=== PATIENT | male | born 1950 | race Caucasian/White ===

== ENCOUNTER 2020-11-29 13:39 | Emergency (ER) | payer MEDICARE, MEDICAID, SELFPAY ==
[2020-11-29 13:46] VITALS: BP 141/78; PULSE 70; RESP 18; TEMP 36.6; O2SAT 97; BMI 23.6
--- NOTE | 2020-11-29 13:58 | ED.WOUNDLAC ---
HPI - Wound/Laceration General Chief Complaint: Wound/Laceration Stated Complaint: cut thumb of left hand Time Seen by Provider: 11/29/20 13:49 Source: patient Mode of arrival: Ambulatory Limitations: no limitations History of Present Illness HPI narrative: Patient is a 70-year-old male who is right-hand dominant here for evaluation of a cut to his left thumb. He states he was using a knife to cut some old toe line off of an object when the knife slipped and cut him in the back of the thumb. He does not know when his last tetanus shot was. He states that he did clean it out prior to arrival and covered with a bandage. Related Data Allergies Allergy/AdvReac Type Severity Reaction Status Date / Time No Known Drug Allergies Allergy Verified 11/29/20 13:46 Review of Systems Constitutional Constitutional: Denies fever(s) Musculoskeletal Musculoskeletal: Denies tingling Comments: Left thumb pain Integumentary/Breasts Comments: Cut to the back of the left thumb Neurologic Neurologic: Denies tingling Hematologic/Lymphatic On Anticoagulants: No Allergic/Immunologic Allergic/Immunologic: Denies urticaria Patient History Medical History Healthy adult Social History Smoking Status: Never smoker Smoking Status: Never smoker alcohol intake frequency: holidays/special occasions only Substance Use Type: does not use Exam Initial Vital Signs Initial Vital Signs: Vital Signs Temperature 97.9 F 11/29/20 13:46 Pulse Rate 70 11/29/20 13:46 Respiratory Rate 18 11/29/20 13:46 Blood Pressure 141/78 H 11/29/20 13:46 Pulse Oximetry 97 11/29/20 13:46 Const General: cooperative and comfortable HENMT Head: normal to inspection and normocephalic Cardio Pulses: radial pulses present on the left Skin Other: 2 cm laceration to the dorsum of the left thumb just proximal to the IP joint. Neuro Sensory Exam: no sensory deficits noted Extrem Other: Patient able to flex and extend the right thumb both active and passive. Psych Appearance: grossly normal and well kempt Procedures Laceration Repair Laceration 1: Site: other (Thumb) Side (If applicable): left Size (cm): 2 Description: linear Depth: simple, single layer Local Anesthetic: lidocaine 1% and with bicarb Amount of anesthesia used (mL): 2 Pre-repair: wound explored and deep structures intact Skin layer closed with: nylon Size (cm): 4-0 Number of sutures: 4 Technique: simple, interrupted Course Orders Ordered: Discontinued Medications Bacitracin (Bacitracin Oint 0.9 Gm Pckt) 1 applic TOP NOW ONE Stop: 11/29/20 13:54 Last Admin: 11/29/20 14:09 Dose: 1 applic Documented by: Diphtheria/Tetanus/Acell Pertussis (Tet,Diph,Pertuss(Acell),Vac/Pf 0.5 Ml Syringe) 0.5 ml IM .ONCE ONE Stop: 11/29/20 13:54 Last Admin: 11/29/20 14:10 Dose: 0.5 ml Documented by: Lidocaine/Sodium Bicarbonate (Lido 1%/Sod Bicarb 8.4% (10ml) 10 Ml Syringe) 10 ml INJ NOW ONE Stop: 11/29/20 13:54 Last Admin: 11/29/20 14:09 Dose: 10 ml Documented by: Vital Signs Vital signs: Vital Signs - 8 hr 11/29/20 13:46 Temperature 97.9 F Pulse Rate 70 Respiratory Rate 18 Blood Pressure 141/78 H Pulse Oximetry 97 MDM - Wound/Laceration MDM Narrative Medical decision making narrative: Patient is neurovascularly intact. It appears that the deep structures to include the tendons. Was closed as described above. His tetanus was updated. He was given care instructions and return precautions. He expressed understanding agreement. Discharge Plan Departure Patient Disposition: Home Clinical Impression: Laceration Instructions: DI for Laceration Repair Activity Restrictions/Additional Instructions: The stitches that were placed will need to be removed in 7-10 days. Until then you can wash your hands like normal however I do recommend not soaking your hands and anything. You can keep the area covered with a bandage. Return to the emergency department for any new or worsening symptoms. Your tetanus shot was also updated today.
[2020-11-29] MEDS: LIDO 1%/SOD BICARB 8.4% (10ML) 10 ML SYRINGE INJ (14:09)
[2020-11-29] MEDS: BACITRACIN OINT 0.9 GM PCKT 1 APPLIC TOP (14:09)
[2020-11-29] MEDS: TET,DIPH,PERTUSS(ACELL),VAC/PF 0.5 ML SYRINGE IM (14:10)
[2020-11-29 14:38] VITALS: BP 127/77; PULSE 60; RESP 14; O2SAT 98
== END 2020-11-29 14:42 | disposition home or self-care (01) ==
PROVIDERS: Emergency Provider Emergency Medicine
DX: S61.012A Laceration without foreign body of left thumb without damage to nail, initial encounter (principal); W26.0XXA Contact with knife, initial encounter; Z23 Encounter for immunization
CPT/HCPCS: 12001; 90471; 99283; 99284; 90715